=== PATIENT | male | born 1975 | race Two or more races ===

== ENCOUNTER 2024-04-27 09:11 | Inpatient (IN) | payer MEDICARE, MEDICAID ==
[~2024-04-27] VITALS: Ht 175.3 cm; Wt 111.9 kg
[2024-04-27] MEDS: SODIUM CHLORIDE 0.9% 1,000 ML IVB ONE (10:03)
[2024-04-27] MEDS: METOCLOPRAMIDE HCL 5MG/ml INJ 2ml VIAL IV ONE ×2 (10:03→17:54)
--- NOTE | 2024-04-27 10:29 | DVH ---
XY CHEST TWO VIEWS ROUTINE CLINICAL HISTORY: cp COMPARISON: None TECHNIQUE: Frontal and lateral view of the chest was obtained FINDINGS: Lines and Tubes: None. Midline sternotomy wires with prosthetic heart valve. Lungs: Right lower lung zone curvilinear opacities. Pleura: No effusion. No pneumothorax. Cardiomediastinal contours: Unremarkable Bones: No acute osseous abnormality. IMPRESSION: 1. Right basilar curvilinear opacities, likely atelectasis, with developing infiltrate not excluded. HS:Y
[2024-04-27 10:35] LABS: Basophils # (auto) 0 10 ^3/uL (0-0.2); Basophils % (auto) 0.5 % (0.0-2.0); Eosinophils # (auto) 0.1 10 ^3/uL (0-0.8); Hematocrit 43.4 % (41.0-53.0); Hemoglobin 15.3 g/dL (13.5-17.5); Lymphocytes # (auto) 1.4 10 ^3/uL (0.4-5.4); Mean Corpuscular Hemoglobin 30.6 pg (28.0-32.0); Mean Corpuscular Hgb Conc. 35.2 g/dL (32.0-36.0); Mean Corpuscular Volume 86.9 fL (80.0-100.0); Monocytes # (auto) 0.7 10 ^3/uL (0-1.3); Monocytes % (auto) 12.5 % (0.0-12.0); Neutrophils # (auto) 3.3 10 ^3/uL (1.6-8.6); Platelet Count (auto) 198 10^3/uL (140-450); Red Blood Cells 4.99 10^6/uL (4.5-5.90); Red Cell Distribution Width 13.7 % (11.8-14.3); White Blood Cell 5.5 10^3/uL (4.4-10.8)
[2024-04-27 10:50] LABS: Albumin 3.8 g/dL (3.2-4.8); Alkaline Phosphatase 70 U/L (46-116); Anion Gap 6 (5-15); BUN/Creatinine Ratio 19.1 (10.0-20.0); Blood Urea Nitrogen 21 mg/dL (9-23); Carbon Dioxide 23 mmol/L (20-31); Glucose 105 mg/dL (74-106); Magnesium 2.2 mg/dL (1.6-2.6); Potassium 3.9 mmol/L (3.5-5.1); Sodium 137 mmol/L (136-145); Total Protein 6.1 g/dL (5.7-8.2)
--- NOTE | 2024-04-27 10:50 | ED.PDOC ---
HPI Comments 48 year old male FARZANEH presents to the ED with chief complaint of chest pain. Patient reports that he has been experiencing chest pain with associated nausea, hiccups, forgetfulness, and SOB for a week now with diarrhea for the past 2 days. Patient relays that his chest pain radiates from his back to the front of his chest. Patient states he had a previous CVA with right sided deficits and is currently on Coumadin. Patient denies any cough, vomiting, fever, chills, headache, abdominal pain, or dizziness. Chief Complaint: Chest Pain Time Seen by MD: 10:45 Primary Care Provider: JEANNE Reviewed Notes: Nurses Notes, Batter Scaler Notes, Medications, Allergies Allergies: Coded Allergies: NO KNOWN ALLERGIES (Unverified , 04/27/24) Information Source: Patient, Emergency Med Personnel Mode of Arrival: EMS Severity: Moderate Timing: Weeks Duration: Since onset Prehospital treatment: None Location: Substernal Radiation: Back Quality: Sharp Onset: At Rest Cardiac Risk Factors: HTN PE Risk Factors: None History of: None Associated Signs and Symptoms: SOB Past Medical History PAST MEDICAL HISTORY: CVA, HTN Surgical History (Other): Aortic valve replacement Family History Family History: Reviewed,noncontributory to illness Social History Smoker: Non-Smoker Alcohol: Denies ETOH Use Drugs: Marijuana Lives In: Home Constitutional: reports: others ("hiccups"); denies: chills, diaphoresis, fatigue, fever, malaise, sweats, weakness EENTM: denies: blurred vision, double vision, ear bleeding, ear discharge, ear drainage, ear pain, ear ringing, eye pain, eye redness, hearing loss, mouth p ain, mouth swelling, nasal discharge, nose bleeding, nose congestion, nose pain, photophobia, tearing, throat pain, throat swelling, voice changes, others Respiratory: reports: shortness of breath; denies: cough, hemoptysis, orthopnea, SOB at rest, SOB with excertion, stridor, wheezing, others Cardiovascular: reports: chest pain; denies: dizzy spells, diaphoresis, Dyspnea on exertion, edema, irregular heart beat, left arm pain, lightheadedness, palpitations, PND, syncope, others Gastrointestinal: reports: diarrhea, nausea; denies: abdomen distended, abdominal pain, blood streaked bowels, constipated, dysphagia, difficulty swallowing, hematemesis, melena, poor appetite, poor fluid intake, rectal bleeding, rectal pain, vomiting, others Genitourinary: denies: burning, dysuria, flank pain, frequency, hematuria, incontinence, penile discharge, penile sore, pain, testicle pain, testicle swelling, urgency, others Neurological: denies: dizziness, fainting, headache, left sided numbness, left sided weakness, numbness, paresthesia, pre-existing deficit, right sided numbness, right sided weakness, seizure, speech problems, tingling, tremors, weakness, others Musculoskeletal: denies: back pain, gout, joint pain, joint swelling, muscle pain, muscle stiffness, neck pain, others Integumetry: denies: bruises, change in color, change in hair/nails, dryness, laceration, lesions, lumps, rash, wounds, others Allergic/Immunocompromised: denies: Difficulty Healing, Frequent Infections, Hives, Itching, others Hematologic/Lymphatic: denies: anemia, blood clots, easy bleeding, easy bruising, swollen glands, others Endocrine: denies: excessive hunger, excessive sweating, excessive thirst, excessive urination, flushing, intolerance to cold, intolerance to heat, unexplained weight gain, unexplained weight loss, others Psychiatric: denies: anxiety, bipolar disorder, depression, hopeless, panic disorder, schizophrenia, sleepless, suicidal, others All Other Systems: Reviewed and Negative Physical Exam General Appearance: Moderate Distress, Obese HEENT: Normal ENT Inspection, PERRL/EOMI, Other (Constant hiccups) Neck: Full Range of Motion, Non-Tender, Normal, Normal Inspection Respiratory: Chest Non-Tender, Lungs Clear, No Accessory Muscle Use, No Respiratory Distress, Normal Breath Sounds Cardiovascular: No Edema, No JVD, No Murmur, No Gallop, Normal Peripheral Pulses, Regular Rate/Rhythm Breast Exam: Deferred Gastrointestinal: No Organomegaly, Non Tender, No Pulsatile Mass, Normal Bowel Sounds, Soft Genitalia: Deferred Pelvic: Deferred Rectal: Deferred Extremities: Decreased range of motion, No pedal edema, Other (Right hemiparesis) Neurologic: Alert, Motor Weakness, Other (Right hemiparesis) Cerebellar Function: Normal Reflexes: Normal Skin: Dry, Normal Color, Warm Peripheral Pulses: 1+ carotid (R), 1+ carotid (L) Lymphatic: No Adenopathy EKG EKG : Pulse Rate (adult): 69 [place]: Normal Cardiac Rhythm: NSR Block: RBBB Was a procedure done? Was a procedure done?: No CP Differential Dx Differential Diagnosis: Hypoxia, MAT, PAC's Differential Diagnosis: Gastritis, Myocardial Infarction, Pericarditis X-Ray, Labs, Meds, VS Vital Signs Date Time Temp Pulse Resp B/P (MAP) Pulse Ox O2 Delivery O2 Flow Rate FiO2 04/27/24 18:21 79 04/27/24 17:45 70 17 110/66 (81) 98 04/27/24 15:20 70 04/27/24 12:07 63 04/27/24 12:00 98.7 62 15 97/62 (74) 97 98.7 04/27/24 11:15 69 04/27/24 11:00 59 18 96/61 (73) 94 04/27/24 10:24 68 04/27/24 09:49 Room Air* 0 21 04/27/24 09:44 68 17 114/69 (84) 97 04/27/24 09:15 69 04/27/24 09:15 99.0 78 20 123/78 (93) 97 Lab Test 04/27/24 11:45 04/27/24 10:20 Range/Units Urine Color Yellow Yellow Urine Clarity Clear Clear Urine pH 6.0 5.0-9.0 Urine Specific [place] 1.025 1.001-1.035 Urine Protein Negative Negative Urine Ketones Negative Negative Urine Blood Negative Negative /uL Urine Nitrite Negative Negative Urine Bilirubin Negative Negative Urine Urobilinogen 2 H Negative mg/dL Urine Leukocyte Esterase Negative Negative /uL Urine RBC <1 0 - 3 /hpf Urine WBC 1 0 - 3 /hpf Urine Squamous Epithelial Cells Few <5 /hpf Urine Bacteria None seen None Seen /hpf Urine Glucose Normal Normal mg/dL White Blood Count 5.5 4.4-10.8 10^3/uL Red Blood Count 4.99 4.5-5.90 10^6/uL Hemoglobin 15.3 13.5-17.5 g/dL Hematocrit 43.4 41.0-53.0 % Mean Corpuscular Volume 86.9 80.0-100.0 fL Mean Corpuscular Hemoglobin 30.6 28.0-32.0 pg Mean Corpuscular Hemoglobin Concent 35.2 32.0-36.0 g/dL Red Cell Distribution Width 13.7 11.8-14.3 % Platelet Count 198 140-450 10^3/uL Mean Platelet Volume 7.8 6.9-10.8 fL Neutrophils (%) (Auto) 60.0 37.0-80.0 % Lymphocytes (%) (Auto) 26.0 10.0-50.0 % Monocytes (%) (Auto) 12.5 H 0.0-12.0 % Eosinophils (%) (Auto) 1.0 0.0-7.0 % Basophils (%) (Auto) 0.5 0.0-2.0 % Neutrophils # (Auto) 3.3 1.6-8.6 10 ^3/uL Lymphocytes # (Auto) 1.4 0.4-5.4 10 ^3/uL Monocytes # (Auto) 0.7 0-1.3 10 ^3/uL Eosinophils # (Auto) 0.1 0-0.8 10 ^3/uL Basophils # (Auto) 0 0-0.2 10 ^3/uL Nucleated Red Blood Cells 0.0 % Prothrombin Time 18.9 H 9.3-11.8 sec Prothrombin Time INR 1.87 H 0.9-1.15 Activated Partial Thromboplast Time 36.7 H 24.5-34.5 SEC D-Dimer, Quantitative 0.86 H 0.0-0.49 mg/L FEU Sodium Level 137 136-145 mmol/L Potassium Level 3.9 3.5-5.1 mmol/L Chloride Level 108 H 98-107 mmol/L Carbon Dioxide Level 23 20-31 mmol/L Anion Gap 6 5-15 Blood Urea Nitrogen 21 9-23 mg/dL Creatinine 1.10 0.700-1.30 mg/dL Glomerular Filtration Rate Calc 82 >90 mL/min BUN/Creatinine Ratio 19.1 10.0-20.0 Serum Glucose 105 74-106 mg/dL Calcium Level 8.4 L 8.7-10.4 mg/dL Magnesium Level 2.2 1.6-2.6 mg/dL Total Bilirubin 1.0 0.2-1.0 mg/dL Aspartate Amino Transferase (AST) 52 H 13-40 U/L Alanine Aminotransferase (ALT) 52 H 7-40 U/L Alkaline Phosphatase 70 46-116 U/L Troponin I High Sensitivity 8 </=54 ng/L Total Protein 6.1 5.7-8.2 g/dL Albumin 3.8 3.2-4.8 g/dL Thyroid Stimulating Hormone (TSH) 0.73 0.55-4.78 uIU/mL Current Medications Medications (Trade) Dose Ordered Sig/Lane Route Start Time Stop Time Status Last Admin Sodium Chloride 1,000 ml @ 1,000 mls/hr Q1H ONCE IVB 04/27/24 10:00 04/27/24 10:59 DC 04/27/24 10:03 Metoclopramide HCl (Reglan Injection) 10 mg ONCE ONCE IV 04/27/24 10:00 04/27/24 10:01 DC 04/27/24 10:03 Ceftriaxone Sodium 50 ml @ 100 mls/hr ONCE ONCE IV 04/27/24 11:00 04/27/24 11:29 DC 04/27/24 11:12 Metoclopramide HCl (Reglan Injection) 10 mg ONCE ONCE IV 04/27/24 17:45 04/27/24 17:46 DC 04/27/24 17:54 Ceftriaxone Sodium 50 ml @ 100 mls/hr ONCE ONCE IV 04/27/24 18:30 04/27/24 18:59 DC 04/27/24 18:59 X-Ray, Labs, Meds, VS Comment Course in the emergency department eventful patient came in because of sudden onset this past week of nausea vomiting diarrhea this past two days had nonstop hiccups and also shortness of breath and chest pain substernal radiating to the back patient with a history of hypertension CVA with right hemiparesis in aortic valvular disease repair Chest x-ray shows right basilar infiltrate EKG shows normal sinus rhythm at 69 with right bundle-branch block CBC normal CMP negative Magnesium 2.2 INR 1.87 D-dimer elevated at 0.86 TSH 0.73 Urine negative Liver enzymes slightly elevated CT angiogram pending Dr. Ledezma to follow up Time of 1ST Reevaluation: 11:45 Reevaluation 1ST: Unchanged Time of 2ND Reevaluation: 15:20 Reevaluation 2ND: Improved Time of 3RD Reevaluation: 18:23 Reevaluation 3RD: Unchanged Patient Education/Counseling: Diagnosis, Treatment Family Education/Counseling: No Family Present Assigned to Dr. dr ledezma Change of Shift?: Yes Additional Information - The following tests were ordered, and results were reviewed by me: CXR, D- Dimer, PTPTT, Magnesium, CBC, CMP, UA, TSH - Additional information was gathered from interviewing the following independent Historian: EMT - I reviewed and agreed with the following test results read by other provider: CXR - I discussed treatments and results with medical personnel. Departure 1 Departure Time of Disposition: 20:03 (Patient presented with chest pain that was concerning for possible STEMI, ACS, PE, Pneumonia, Muscle Strain, COPD, Dissection. Data: 1. I ordered and reviewed the result of at least 3 labs including a CBC, BMP, and Troponin. 2. I independently interpreted the following tests: EKG which shows sinus arrhythmia and Chest X-ray which shows atelectasis. Risk:This patient has a high risk of morbidity due to further diagnostic testing or treatment and may suffer from an acute cardiac or respiratory disorder. Workup reveals concern for ACS and patient should be admitted for further workup and possible expert consultation. ) Impression: Primary Impression: Chest pain Qualified Codes: R07.2 - Precordial pain Additional Impressions: Shortness of breath Gastroenteritis Dehydration determined by examination Hemiparesis affecting right side as late effect of cerebrovascular accident Intractable hiccups Elevated d-dimer Aortic valve replaced Right lower lobe consolidation Disposition: ADMITTED INPATIENT Admit to: Med Surg Condition: Serious Critical Care Note Critical Care Time?: Yes (30 min-critical care time only) Critical care comment: Acute chest pain Authorized and Performed by: Anastasia Ledezma MD Total critical care time: Approximately 33 minutes Due to a high probability of clinically significant, life threatening deterioration, the patient required my highest level of preparedness to intervene emergently and I personally spent this critical care time directly and personally managing the patient. This critical care time included obtaining a history; examining the patient; pulse oximetry; ordering and review of studies; arranging urgent treatment with development of a management plan; evaluation of patient's response to treatment; frequent reassessment; and, discussions with other providers. This critical care time was performed to assess and manage the high probability of imminent, life-threatening deterioration that could result in multi-organ failure. It was exclusive of separately billable procedures and treating other patients and teaching time. Please see my other sections and the rest of the note for further information on patient assessment and treatment. Stability Stability form required: Yes Unstable for transfer: Telemetry monitoring (Telemetry monitoring required), Requires medication (Requires Med for stabilization) Heart Score Heart Score: Heart Score Response (Comments) Value History Moderate Suspicious 1 EKG Normal 0 Age 45-64 1 Risk Factors >3 or Hx ASHD 2 Troponin N/A 0 Total 4 I personally scribed for KATHRYN RICKS MD ([email or web address]) on 04/27/24 at 10:50. Electronically submitted by Adrián Alonso ([email or web address]). KATHRYN RICKS MD Apr 27, 2024 10:50 ANASTASIA LEDEZMA MD Apr 27, 2024 20:04
[2024-04-27 10:55] LABS: INR 1.87 (0.9-1.15); Partial Thromboplastin Time 36.7 SEC (24.5-34.5); Prothrombin Time 18.9 sec (9.3-11.8)
[2024-04-27 11:03] LABS: Alanine Aminotransferase 52 U/L (7-40); Aspartate Aminotransferase 52 U/L (13-40); Calcium 8.4 mg/dL (8.7-10.4); Chloride 108 mmol/L (98-107)
[2024-04-27] MEDS: cefTRIAXone 1GM/50ML D5W 50 ML IV ONE ×2 (11:12→18:59)
[2024-04-27 11:51] LABS: Urine Bacteria None Seen /hpf (None Seen)
[2024-04-27 12:13] LABS: Urine Blood Negative /uL (Negative); Urine Clarity Clear (Clear); Urine Color Yellow (Yellow); Urine Protein, UAD Negative (Negative); Urine Specific Gravity 1.025 (1.001-1.035); Urine Urobilinogen 2 mg/dL (Negative); Urine WBC 1 /hpf (0 - 3)
--- NOTE | 2024-04-27 19:09 | ECG ---
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
--- NOTE | 2024-04-27 19:22 | DVH ---
INDICATION: Pulmonary embolism COMPARISON: None TECHNIQUE: Multidetector CTA of the chest was performed of the chest with 100 cc of intravenous contr ast. PULMONARY ANGIOGRAPHY PROTOCOL was utilized using a bolus-tracking technique centered on the gordon n pulmonary artery. Axial, coronal and sagittal multiplanar and MIP reformats were performed. Radiation Dose Information: CT Dose: CTDI volume is 26.29 mGy. Dose-length product is 1027.64 mGy*cm Omnipaque 350: 100 mL The dose indicators for CT are the volume Computed Tomography (CT) Dose Index (CTDIvol) and the Dose Length Product (DLP), and are measured in units of mGy and mGy-cm, respectively. These indicators are not patient dose, but values generated from the CT scanner acquisition factors. The report includes radiation exposure data for exposures received during this examination. Findings: Pulmonary artery: Normal caliber of the pulmonary artery. Poo opacification of the pulmonary artery preventing accurate evaluation for pulmonary emboli. ( necessary opacification to exclude pulmonary e mboli is 266 Hounsfield units: Tissue density achieved 165). No large central or saddle embolus visu alized. Lower neck: Normal thyroid. Lungs: No focal consolidation, pulmonary mass, or suspicious pulmonary nodule. Heart/Vascular Structures: Normal heart size. Normal caliber and enhancement of the aorta. Aortic travon ve prosthesis in place. Lymph Nodes: No adenopathy Pleura: No pleural effusion or significant pneumothorax. Musculoskeletal: No acute osseous abnormality. Sternal wire sutures in place Upper abdomen: Gallbladder has been surgically removed. IMPRESSION: 1. No pulmonary embolism. 2. No acute intrathoracic abnormality.
--- NOTE | 2024-04-27 20:54 | DVHHPRES ---
History of Present Illness Resident Creating Document: JORGE A ANDINO RESIDENT History of Present Illness This is a 48-year-old male with with past medical history of hypertension, CVA with right-sided weakness, status post aortic valve surgery presented to the ED with a chief complaint of chest pain and cough since Saturday prior to this admission. Patient states that chest pain started Saturday which was sharp stabbing pain and fluctuated between 2 out of 10 to 8/10 and radiate to the upper abdomen and associated with shortness of breath, dizziness and diaphoresis. The patient also complains of low-grade fever, sore throat and cough with whitish sputum for the same duration and hiccough up for 1 week The patient denies headache, flu-like symptoms, abdominal pain, dysuria, sick contact, recent traveling or any change in bowel and bladder habit. Past Medical History Hypertension, CVA with right-sided weakness Past Surgical History Cholecystectomy, aortic valve surgery Family History None Past Social History Lives with family Smoke weeds, nonalcoholic and never tried any other drugs Review of Systems Constitutional: Yes: Fever; No: Chills, Sweats, Weakness, Malaise, Other Eyes: No: Pain, Vision change, Conjunctivae inflammation, Eyelid inflammation, Other, Redness ENT: No: Ear pain, Ear discharge, Nose pain, Nose discharge, Nose congestion, Mouth pain, Mouth swelling, Throat pain, Throat swelling, Other Respiratory: Cough, Shortness of breath, Sputum; No: Dry, SOB with excertion, Wheezing, Hemoptysis, Pleuritic Pain, Wheezing, Other Cardiovascular: Chest Pain, Lt Headedness; No: Palpitations, Orthopnea, Paroxysmal Noc. Dyspnea, Edema, Other Gastrointestinal: No: Nausea, Vomiting, Abdominal Pain, Diarrhea, Constipation, Melena, Hematochezia, Other Genitourinary: No Dysuria, No Frequency, No Incontinence, No Hematuria, No Retention, No Other Musculoskeletal: No: other, neck pain, shoulder pain, arm pain, back pain, hand pain, leg pain, foot pain Skin: No: Rash, Lesions, Jaundice, Bruising, Other Neurological: No: Weakness, Numbness, Incoordination, Change in speech, Confusion, Seizures, Other Allergies: Coded Allergies: NO KNOWN ALLERGIES (Unverified , 04/27/24) Exam Vital Signs Vital Signs Date Time Temp Pulse Resp B/P (MAP) Pulse Ox O2 Delivery O2 Flow Rate FiO2 04/27/24 19:37 123 04/27/24 19:20 Room Air* 0 21 04/27/24 17:45 17 110/66 (81) 98 04/27/24 12:00 98.7 98.7 Exam Physical examination: General Appearance: Alert, Oriented X3, Cooperative, No acute distress HEENT: Atraumatic, PERRLA, EOMI, Mucous membrane moist/pink Respiratory: Clear to auscultation, Normal air movement Cardiovascular: Regular rate, Normal S1, Normal S2, No murmurs, no chest wall tenderness Abdominal: Normal bowel sounds, Soft, No tenderness, No hepatospenomegaly, No masses Extremities: No clubbing, No cyanosis, No edema, Normal pulses, No tenderness/swelling Skin: No rashes, No breakdown, No significant lesion Neuro: Normal gait, Normal speech, Strength at 5/5 X4 ext, Normal tone, Sensation intact, grossly intact cranial nerves Psych/Mental Status: Mental status NL, Mood NL Labs/Xrays Labs Test 04/27/24 11:45 04/27/24 10:20 Range/Units Urine Color Yellow Yellow Urine Clarity Clear Clear Urine pH 6.0 5.0-9.0 Urine Specific [place] 1.025 1.001-1.035 Urine Protein Negative Negative Urine Ketones Negative Negative Urine Blood Negative Negative /uL Urine Nitrite Negative Negative Urine Bilirubin Negative Negative Urine Urobilinogen 2 H Negative mg/dL Urine Leukocyte Esterase Negative Negative /uL Urine RBC <1 0 - 3 /hpf Urine WBC 1 0 - 3 /hpf Urine Squamous Epithelial Cells Few <5 /hpf Urine Bacteria None seen None Seen /hpf Urine Glucose Normal Normal mg/dL White Blood Count 5.5 4.4-10.8 10^3/uL Red Blood Count 4.99 4.5-5.90 10^6/uL Hemoglobin 15.3 13.5-17.5 g/dL Hematocrit 43.4 41.0-53.0 % Mean Corpuscular Volume 86.9 80.0-100.0 fL Mean Corpuscular Hemoglobin 30.6 28.0-32.0 pg Mean Corpuscular Hemoglobin Concent 35.2 32.0-36.0 g/dL Red Cell Distribution Width 13.7 11.8-14.3 % Platelet Count 198 140-450 10^3/uL Mean Platelet Volume 7.8 6.9-10.8 fL Neutrophils (%) (Auto) 60.0 37.0-80.0 % Lymphocytes (%) (Auto) 26.0 10.0-50.0 % Monocytes (%) (Auto) 12.5 H 0.0-12.0 % Eosinophils (%) (Auto) 1.0 0.0-7.0 % Basophils (%) (Auto) 0.5 0.0-2.0 % Neutrophils # (Auto) 3.3 1.6-8.6 10 ^3/uL Lymphocytes # (Auto) 1.4 0.4-5.4 10 ^3/uL Monocytes # (Auto) 0.7 0-1.3 10 ^3/uL Eosinophils # (Auto) 0.1 0-0.8 10 ^3/uL Basophils # (Auto) 0 0-0.2 10 ^3/uL Nucleated Red Blood Cells 0.0 % Prothrombin Time 18.9 H 9.3-11.8 sec Prothrombin Time INR 1.87 H 0.9-1.15 Activated Partial Thromboplast Time 36.7 H 24.5-34.5 SEC D-Dimer, Quantitative 0.86 H 0.0-0.49 mg/L FEU Sodium Level 137 136-145 mmol/L Potassium Level 3.9 3.5-5.1 mmol/L Chloride Level 108 H 98-107 mmol/L Carbon Dioxide Level 23 20-31 mmol/L Anion Gap 6 5-15 Blood Urea Nitrogen 21 9-23 mg/dL Creatinine 1.10 0.700-1.30 mg/dL Glomerular Filtration Rate Calc 82 >90 mL/min BUN/Creatinine Ratio 19.1 10.0-20.0 Serum Glucose 105 74-106 mg/dL Calcium Level 8.4 L 8.7-10.4 mg/dL Magnesium Level 2.2 1.6-2.6 mg/dL Total Bilirubin 1.0 0.2-1.0 mg/dL Aspartate Amino Transferase (AST) 52 H 13-40 U/L Alanine Aminotransferase (ALT) 52 H 7-40 U/L Alkaline Phosphatase 70 46-116 U/L Troponin I High Sensitivity 8 </=54 ng/L Total Protein 6.1 5.7-8.2 g/dL Albumin 3.8 3.2-4.8 g/dL Thyroid Stimulating Hormone (TSH) 0.73 0.55-4.78 uIU/mL Assessment/Plan Assessment/Plan Assessment and plan: # Chest pain rule out ACS - EKG and troponins were unremarkable - Aspirin 325 mg p.o. once - Chest x-ray revealed normal study - Ordered echo - Consulted Cardiology # Ruled out pulmonary embolism - Patient is on room air - D-dimer is elevated - CT angio ruled out possibility of pulmonary embolism # Rule out pancreatitis - Lipase is elevated. - Ordered lipid panel and h/o of cholecystectomy. - IV normal saline at 125 mL/hour # Transaminitis without hyperbilirubinemia - Monitor CMP # History of CVA with right-sided weakness - Aspirin 81 mg p.o. daily and atorvastatin 40 mg p.o. at HS # S/P mechanical aortic valve - Continue warfarin 3 mg p.o. daily # PUD prophylaxis - Protonix 40 mg p.o. daily # DVT prophylaxis - Patient is on warfarin Code status discussed with the patient for more than 20 minutes full code Plan discussed with Dr. Kline Plan discussed with: Patient, Other My Orders Orders - JORGE A ANDINO RESIDENT Procedure Category Date Status Time Admit ADMIT 04/27/24 Verified 20:50 Morphine Sulfate PHA 04/27/24 Verified Injection 21:00 Stat Ekg For Chest TAVIA 04/27/24 Verified Pain 20:50 Notify Of Changes TAVIA 04/27/24 Verified From Base 20:50 Morning Show Producer For TAVIA 04/27/24 Verified 24 Hours 20:50 Nitroglycerin PHA 04/27/24 Verified Sublingual (Ntrostat 21:00 Lipase LAB 04/27/24 Verified 20:50 Drug Screen LAB 04/27/24 Verified 20:50 Covid19 Antigen [facility] LAB 04/27/24 Verified Rapid Influenza A&B LAB 04/27/24 Verified 20:50 Echo 2d Mode Cardiac US 04/27/24 Verified DOP 20:50 Date of Service: Apr 27, 2024 Billing Provider: TANNA KLINE MD Common Visit Codes: [id number] INP/OBS CARE (HIGH) JORGE A ANDINO RESIDENT Apr 27, 2024 20:53 TANNA KLINE MD Apr 28, 2024 17:23
[2024-04-27] MEDS ORDERED: MORPHINE SULFATE INJ 2 MG/ml SYRG IV PRN (21:00)
[2024-04-27] MEDS ORDERED: NITROGLYCERIN 0.4 MG SL TAB SL PRN (21:00)
[2024-04-27 21:45] VITALS: PULSE 115; PULSE 63; O2SAT 94; O2SAT 99
[2024-04-27] MEDS: ASPirin-EC 81 mg tab PO SCH (22:57)
[2024-04-27] MEDS: ASPirin-EC 325mg tab PO ONE (22:57)
[2024-04-27] MEDS: ATORVASTATIN 20 MG TAB PO SCH (22:57)
[2024-04-27] MEDS: MELATONIN 5 MG TAB PO ONE (23:40)
[2024-04-28 01:32] LABS: COVID19 ANTIGEN SOFIA FIA NEGATIVE (NEGATIVE); Rapid Influenza A Negative (Negative); Rapid Influenza B Negative (Negative)
[2024-04-28 02:39] LABS: Amphetamine Screen, Urine Neg (NEGATIVE); Barbiturate Scree,Urine Neg (NEGATIVE); Benzodiazephine Screen, Urine Neg (NEGATIVE); Cannabinoid Screen, Urine Pos (NEGATIVE); Cocaine Screen, Urine Neg (NEGATIVE); Opiate Scree,Urine Neg (NEGATIVE); Phencyclidine Screen, Urine Neg (NEGATIVE)
[2024-04-28 04:37] LABS: Basophils # (auto) 0 10 ^3/uL (0-0.2); Basophils % (auto) 0.2 % (0.0-2.0); Eosinophils # (auto) 0.1 10 ^3/uL (0-0.8); Eosinophils % (auto) 1.7 % (0.0-7.0); Hematocrit 40.9 % (41.0-53.0); Hemoglobin 14.3 g/dL (13.5-17.5); Lymphocytes # (auto) 1.6 10 ^3/uL (0.4-5.4); Lymphocytes % (auto) 35.1 % (10.0-50.0); Mean Corpuscular Hemoglobin 30.6 pg (28.0-32.0); Mean Corpuscular Hgb Conc. 34.9 g/dL (32.0-36.0); Mean Corpuscular Volume 87.5 fL (80.0-100.0); Monocytes # (auto) 0.6 10 ^3/uL (0-1.3); Monocytes % (auto) 13.9 % (0.0-12.0); Neutrophils # (auto) 2.2 10 ^3/uL (1.6-8.6); Neutrophils % (auto) 49.1 % (37.0-80.0); Nucleated Red Blood Cells % 0.1 %; Platelet Count (auto) 175 10^3/uL (140-450); Red Blood Cells 4.68 10^6/uL (4.5-5.90); Red Cell Distribution Width 13.3 % (11.8-14.3); White Blood Cell 4.5 10^3/uL (4.4-10.8)
[2024-04-28 04:57] LABS: INR 1.71 (0.9-1.15); Prothrombin Time 17.4 sec (9.3-11.8)
[2024-04-28] MEDS: SODIUM CHLORIDE 0.9% 1,000 ML IV SCH (05:59)
[2024-04-28 06:19] LABS: Cholesterol 86 mg/dL (< 200); LDL Cholesterol 43 mg/dL (< 100); Triglycerides 102 mg/dL (< 150)
[2024-04-28 06:25] LABS: HDL Cholesterol 27 mg/dL (40-59)
--- NOTE | 2024-04-28 07:59 | ECG ---
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
[2024-04-28 08:00] VITALS: PULSE 67; RESP 21; O2SAT 95
[2024-04-28] MEDS: PANTOPRAZOLE 40 MG TAB PO SCH (10:00)
[2024-04-28 11:03] VITALS: BP 108/58; PULSE 70; RESP 17; TEMP 98.7; O2SAT 97
[2024-04-28] MEDS: cefTRIAXone 1GM/50ML D5W 50 ML IV ONE (11:09)
[2024-04-28] MEDS: AZITHROMYCIN 500MG/ 250ML 250 ML IV ONE (12:04)
--- NOTE | 2024-04-28 13:12 | DVHSR ---
APPROVED REPORT EXAM: Two-dimensional and M-mode echocardiogram with Doppler and color Doppler. Blood Pressure: 113/77 mmHg INDICATION Chest Pain Surgery/Intervention Valve Replacement: Mechanical Type: Aortic Valve RISK FACTORS Height: 69, Weight: 224 DIMENSIONS LVDd5.2 (3.8-5.7cm)LA (2D)5.0 (1.9-4.0cm)Aortic Root (2.0-3.7cm) LVDs3.5 (2.5-4.0cm)LA (MM) (1.9-4.0cm)Aortic Cusp Exc (1.5-2.0cm) EF (%) 60.0 (55-70%)Rt. Atrium4.3 (1.9-4.0cm)Asc. Aorta cm IVSd1.2 (0.7-1.1cm)RV (D) (1.8-2.4cm) PWd1.3 (0.7-1.1cm) Mitral Valve MitralMitral Stenosis E wave0.86m/sMV Mean GR.mmHg E/A ratio0.02D MVAcm2 DECEL TimemsPRESS 1/2 [id number] IVRTmsDop MVA1.74cm2 Aortic Valve Aortic ValveAortic Stenosis V10.78m/Josh Mean GR.14mmHg V22.45m/Josh Peak GR.24mmHg LVOT Diameter2.3 (1.8-2.4cm)Doppler AVA1.32cm2 Pulmonic Valve V21.14m/s Tricuspid Valve TR Velocity1.91m/s [id number] Conclusion Normal left ventricular size and dimension. Normal left ventricular systolic function estimated ejec tion fraction 55%. There is mild anteroseptal wall hypokinesia in keeping with the old open heart lira rgery. There is a grade 1 diastolic dysfunction. Mildly dilated right ventricle. Mildly dilated right atrium. Mildly reduced left ventricular systol ic function. Normal left atrial size and dimension. The aortic valve is likely a mechanical bileaflet valve prosthesis, with a normal gradient peak of 20 and mean of14 mm of mercury no significant stenosis or regurgitation was noted. No paravalvular shaggy k. The mitral valve appears mildly thickened no significant mitral valve regurgitation noted. There is mild tricuspid valve regurgitation. There is mild pulmonary valve regurgitation. No significant pericardial effusion.
--- NOTE | 2024-04-28 14:08 | ECG ---
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
[2024-04-28] MEDS ORDERED: WARFARIN SODIUM 5 MG TAB PO SCH (17:00)
[2024-04-28 17:33] VITALS: BP 118/77; PULSE 63; RESP 20; TEMP 97.9; O2SAT 95
--- NOTE | 2024-04-28 17:50 | DVHPNRES ---
Progress Note Date Seen: Apr 28, 2024 Resident Creating Document: ALICIA CLARKE RESIDENT Has the PT tested + for MRSA If YES, has PT been informed?: No Medical Necessity Reason Pt with a Central, PICC or Fol: No Subjective Review of Systems 48-year-old male patient with past medical history of hypertension, drug abuse marijuana use, CVA with right-sided weakness, [place] status post CABG, status post aortic valve surgery after an endocarditis 10 years ago who presented to the emergency department with a chief confluence chest pain located in the left side of the chest described as sharp like pain that range between 2/10 until 7 out of 10 intensity associated with coughing and fever. Patient denies headache, flu- like symptoms, abdominal pain, dysuria, sick contacts, recent traveling or any change in bowel or bladder habits. Patient was started on empiric antibiotics to manage community acquired pneumonia , cardiology evaluation is still pending. patient was examined at bedside , he reports mild chest pain in the left side , less severe compare than yesterday, and moderate coughing episodes with whitish phlegm. He denies any other symptoms. Review of systems same as mentioned in the HPI. Objective vital signs Vital Sign Date Time Temp Pulse Resp B/P (MAP) Pulse Ox O2 Delivery O2 Flow Rate FiO2 04/28/24 17:33 97.9 63 20 118/77 (91) 95 97.9 04/28/24 09:05 Room Air* 0 N/A Nasal Cannula* Total Intake and Output 04/27/24 04/27/24 04/28/24 15:00 23:00 07:00 Intake Total 50 ml Output Total 500 ml Balance -500 ml 50 ml medications Current Medications Medications Dose Ordered Sig/Lane Route Start Time Stop Time Status Last Admin Dose Admin Morphine Sulfate 2 mg Q30M PRN IV 04/27/24 21:00 Nitroglycerin 0.4 mg Q5MINP PRN SL 04/27/24 21:00 Warfarin Sodium 3 mg COUMADIN PO 04/28/24 17:00 UNV Pantoprazole Sodium 40 mg DAILY PO 04/28/24 10:00 04/28/24 10:00 40 MG Aspirin 81 mg DAILY PO 04/28/24 10:00 04/27/24 22:57 81 MG Atorvastatin Calcium 40 mg HS PO 04/27/24 22:00 04/27/24 22:57 40 MG Sodium Chloride 1,000 ml @ 125 mls/hr Q8H IV 04/28/24 05:30 04/28/24 13:52 125 MLS/HR Warfarin Sodium RX PROTOCOL PER PHARMACY PO 04/28/24 10:00 Ceftriaxone Sodium 50 ml @ 100 mls/hr DAILY@09 IV 04/29/24 09:00 Azithromycin 500 mg DAILY PO 04/29/24 10:00 Cancel Azithromycin 250 ml @ 125 mls/hr DAILY IV 04/29/24 10:00 Examination General Appearance: Alert, Oriented X3, Cooperative, No acute distress HEENT: Atraumatic, PERRLA, EOMI, Mucous membrane moist/pink Respiratory: Clear to auscultation, Normal air movement Cardiovascular: Regular rate, Normal S1, Normal S2, No murmurs, no chest wall tenderness Abdominal: Normal bowel sounds, Soft, No tenderness, No hepatospenomegaly, No masses Extremities: No clubbing, No cyanosis, No edema, Normal pulses, No tenderness/swelling Skin: No rashes, No breakdown, No significant lesion Neuro: Normal gait, Normal speech, Strength at 5/5 X4 ext, Normal tone, Sensation intact, grossly intact cranial nerves Psych/Mental Status: Mental status NL, Mood NL laboratory and microbiology Laboratory Tests 04/28/24 04:13 04/27/24 10:20 Test 04/27/24 10:20 Range/Units Serum Glucose 105 74-106 mg/dL Microbiology Date/Time Source Procedure Growth Status 04/27/24 12:00 Blood Blood Culture - Preliminary NO GROWTH AFTER 24 HOURS OF INCUBATION. Resulted Problem List/Assessment/Plan Problem List/Assessment/Plan # Chest pain rule out ACS - Aspirin 81 mg daily - Atorvastatin 40 gm PO - Chest x-ray revealed normal study - Echo showed: ejection fraction 55%, mild anteroseptal wall hypokinesia . - Consulted Cardiology, pending #Right basilar infiltrate on CXR likely CAP - Ceftriaxone IV - Azithromycin IV # Ruled out pulmonary embolism - Patient is on room air - D-dimer is elevated - CT angio ruled out possibility of pulmonary embolism # Rule out pancreatitis - Lipase is elevated. - Ordered lipid panel and h/o of cholecystectomy. - IV normal saline at 125 mL/hour # Transaminitis without hyperbilirubinemia - Monitor CMP # History of CVA with right-sided weakness - Aspirin 81 mg p.o. daily and atorvastatin 40 mg p.o. at HS # S/P mechanical aortic valve - Continue warfarin 3 mg p.o. daily #type 2 obesity BMI 34.3 - Lifestyle modification and healthy dietary habits counseling # drug abuse, marijuana use - Drug abuse cessation counseling case discussed with goals of care discussed with the patient for 33 minutes code status: full code Plan discussed with: Patient My Orders My Orders Orders - ALICIA CLARKE Procedure Category Date Status Time Cardiac DIET 04/28/24 Transmitted Diet-2gna,Lofat,Lochol Breakfast Ceftriaxone 1gm/50ml PHA 04/29/24 In Process D5w (Rocephin) 09:00 Azithromycin 500mg/ PHA 04/29/24 In Process 250ml (Zithromax 50 10:00 Date of Service: Apr 28, 2024 Billing Provider: JEAN BOUDREAUX MD Common Visit Codes: [id number] INP/OBS CARE(HIGH) Secondary Visit Codes: [id number] CARE PLAN 30 MINUTES ALICIA CLARKE RESIDENT Apr 28, 2024 17:50 JEAN BOUDREAUX MD Apr 29, 2024 10:52
[2024-04-28] MEDS: WARFARIN SODIUM 1 MG TAB PO ONE (19:02)
[2024-04-28 20:00] VITALS: PULSE 86
[2024-04-28 21:00] VITALS: BP 138/79; PULSE 66; RESP 17; TEMP 98.3; O2SAT 98
--- NOTE | 2024-04-29 00:18 | DVHINCON2 ---
Date of service: Apr 28, 2024 Referring Physician Juliane Reason for Consultation Chest pain History of Present Illness This is a 48 year old ,[place] with a PMH of CVA with right sided deficits and HTN who presented to the ED by EMS with complaints of chest pain. Patient reports that he has been experiencing chest pain with associated nausea, hiccups, forgetfulness, and SOB for a week now with diarrhea for the past 2 days. Patient relays that his chest pain radiates from his back to the front of his chest. EKG is NSR at 69. Chest x-ray shows right basilar infiltrate. CBC and CMP are unremarkable. Magnesium 2.2, INR 1.87, D-dimer elevated at 0.86, TSH 0.73. Liver enzymes slightly elevated. CTA chest is negative for PE. Troponin is negative. Patient was admitted to the hospital. I am asked to consult on this patient. Family History: FH: alcoholism G8 FATHER Allergies: Coded Allergies: NO KNOWN ALLERGIES (Unverified , 04/27/24) Current Medications Current Medications Medications (Trade) Dose Ordered Sig/Lane Route PRN Reason Start Time Stop Time Status Last Admin Warfarin Sodium (Coumadin) 3 mg COUMADIN PO 04/28/24 17:00 UNV Pantoprazole Sodium (Protonix Tablet) 40 mg DAILY PO 04/28/24 10:00 04/28/24 10:00 Aspirin (Ecotrin Enteric Coated Tablet) 81 mg DAILY PO 04/28/24 10:00 04/27/24 22:57 Sodium Chloride 1,000 ml @ 125 mls/hr Q8H IV 04/28/24 05:30 04/28/24 18:30 Warfarin Sodium (Coumadin Per Rx Protocol) RX PROTOCOL PER PHARMACY PO 04/28/24 10:00 Ceftriaxone Sodium 50 ml @ 100 mls/hr DAILY@09 IV 04/29/24 09:00 Azithromycin 250 ml @ 125 mls/hr DAILY IV 04/29/24 10:00 04/28/24 10:49 DC Azithromycin (Zithromax Tablet) 500 mg DAILY PO 04/29/24 10:00 Cancel Azithromycin 250 ml @ 125 mls/hr DAILY IV 04/29/24 10:00 Review of Systems Constitutional: reports: others ("hiccups"); denies: chills, diaphoresis, fatigue, fever, malaise, sweats, weakness EENTM: denies: blurred vision, double vision, ear bleeding, ear discharge, ear drainage, ear pain, ear ringing, eye pain, eye redness, hearing loss, mouth pain, mouth swelling, nasal discharge, nose bleeding, nose congestion, nose pain, photophobia, tearing, throat pain, throat swelling, voice changes, others Respiratory: reports: shortness of breath; denies: cough, hemoptysis, orthopnea, SOB at rest, SOB with excertion, stridor, wheezing, others Cardiovascular: reports: chest pain; denies: dizzy spells, diaphoresis, Dyspnea on exertion, edema, irregular heart beat, left arm pain, lightheadedness, palpitations, PND, syncope, others Gastrointestinal: reports: diarrhea, nausea; denies: abdomen distended, abdominal pain, blood streaked bowels, constipated, dysphagia, difficulty swallowing, hematemesis, melena, poor appetite, poor fluid intake, rectal bleeding, rectal pain, vomiting, others Genitourinary: denies: burning, dysuria, flank pain, frequency, hematuria, incontinence, penile discharge, penile sore, pain, testicle pain, testicle swelling, urgency, others Neurological: denies: dizziness, fainting, headache, left sided numbness, left sided weakness, numbness, paresthesia, pre-existing deficit, right sided numbness, right sided weakness, seizure, speech problems, tingling, tremors, weakness, others Musculoskeletal: denies: back pain, gout, joint pain, joint swelling, muscle pain, muscle stiffness, neck pain, others Integumetry: denies: bruises, change in color, change in hair/nails, dryness, laceration, lesions, lumps, rash, wounds, others Allergic/Immunocompromised: denies: Difficulty Healing, Frequent Infections, Hives, Itching, others Hematologic/Lymphatic: denies: anemia, blood clots, easy bleeding, easy bruising, swollen glands, others Endocrine: denies: excessive hunger, excessive sweating, excessive thirst, excessive urination, flushing, intolerance to cold, intolerance to heat, unexplained weight gain, unexplained weight loss, others Psychiatric: denies: anxiety, bipolar disorder, depression, hopeless, panic disorder, schizophrenia, sleepless, suicidal, others All Other Systems: Reviewed and Negative Vital Signs Vital Signs Date Time Temp Pulse Resp B/P (MAP) Pulse Ox O2 Delivery O2 Flow Rate FiO2 04/28/24 21:00 98.3 66 17 138/79 (98) 98 98.3 04/28/24 11:03 Room Air* 0 21 Physical Exam GENERAL: Awake, alert, oriented. Obese. LUNGS: Clear. CARDIOVASCULAR: Heart sounds are good. ABDOMEN: Soft. Labs/Diagnostic Data Labs Test 04/28/24 04:13 04/28/24 01:53 04/28/24 00:53 04/27/24 21:11 Range/Units White Blood Count 4.5 4.4-10.8 10^3/uL Red Blood Count 4.68 4.5-5.90 10^6/uL Hemoglobin 14.3 13.5-17.5 g/dL Hematocrit 40.9 L 41.0-53.0 % Mean Corpuscular Volume 87.5 80.0-100.0 fL Mean Corpuscular Hemoglobin 30.6 28.0-32.0 pg Mean Corpuscular Hemoglobin Concent 34.9 32.0-36.0 g/dL Red Cell Distribution Width 13.3 11.8-14.3 % Platelet Count 175 140-450 10^3/uL Mean Platelet Volume 8.0 6.9-10.8 fL Neutrophils (%) (Auto) 49.1 37.0-80.0 % Lymphocytes (%) (Auto) 35.1 10.0-50.0 % Monocytes (%) (Auto) 13.9 H 0.0-12.0 % Eosinophils (%) (Auto) 1.7 0.0-7.0 % Basophils (%) (Auto) 0.2 0.0-2.0 % Neutrophils # (Auto) 2.2 1.6-8.6 10 ^3/uL Lymphocytes # (Auto) 1.6 0.4-5.4 10 ^3/uL Monocytes # (Auto) 0.6 0-1.3 10 ^3/uL Eosinophils # (Auto) 0.1 0-0.8 10 ^3/uL Basophils # (Auto) 0 0-0.2 10 ^3/uL Nucleated Red Blood Cells 0.1 % Prothrombin Time 17.4 H 9.3-11.8 sec Prothrombin Time INR 1.71 H 0.9-1.15 Triglycerides Level 102 < 150 mg/dL Cholesterol Level 86 < 200 mg/dL LDL Cholesterol 43 < 100 mg/dL HDL Cholesterol 27 L 40-59 mg/dL Urine Opiates Screen Neg NEGATIVE Urine Fentanyl Screen Neg NEGATIVE Urine Barbiturates Screen Neg NEGATIVE Urine Phencyclidine Screen Neg NEGATIVE Urine Amphetamines Screen Neg NEGATIVE Urine Benzodiazepines Screen Neg NEGATIVE Urine Cocaine Screen Neg NEGATIVE Urine Cannabinoids Screen Pos NEGATIVE Influenza Type A Antigen Negative Negative Influenza Type B Antigen Negative Negative SARS-CoV-2 Antigen (Rapid) Negative NEGATIVE Lipase 67 H 12-53 U/L Plasma/Serum Blood Alcohol < 3.0 <10 mg/dL Test 04/27/24 11:45 04/27/24 10:20 Range/Units Urine Color Yellow Yellow Urine Clarity Clear Clear Urine pH 6.0 5.0-9.0 Urine Specific [place] 1.025 1.001-1.035 Urine Protein Negative Negative Urine Ketones Negative Negative Urine Blood Negative Negative /uL Urine Nitrite Negative Negative Urine Bilirubin Negative Negative Urine Urobilinogen 2 H Negative mg/dL Urine Leukocyte Esterase Negative Negative /uL Urine RBC <1 0 - 3 /hpf Urine WBC 1 0 - 3 /hpf Urine Squamous Epithelial Cells Few <5 /hpf Urine Bacteria None seen None Seen /hpf Urine Glucose Normal Normal mg/dL Activated Partial Thromboplast Time 36.7 H 24.5-34.5 SEC D-Dimer, Quantitative 0.86 H 0.0-0.49 mg/L FEU Sodium Level 137 136-145 mmol/L Potassium Level 3.9 3.5-5.1 mmol/L Chloride Level 108 H 98-107 mmol/L Carbon Dioxide Level 23 20-31 mmol/L Anion Gap 6 5-15 Blood Urea Nitrogen 21 9-23 mg/dL Creatinine 1.10 0.700-1.30 mg/dL Glomerular Filtration Rate Calc 82 >90 mL/min BUN/Creatinine Ratio 19.1 10.0-20.0 Serum Glucose 105 74-106 mg/dL Calcium Level 8.4 L 8.7-10.4 mg/dL Magnesium Level 2.2 1.6-2.6 mg/dL Total Bilirubin 1.0 0.2-1.0 mg/dL Aspartate Amino Transferase (AST) 52 H 13-40 U/L Alanine Aminotransferase (ALT) 52 H 7-40 U/L Alkaline Phosphatase 70 46-116 U/L Troponin I High Sensitivity 8 </=54 ng/L Total Protein 6.1 5.7-8.2 g/dL Albumin 3.8 3.2-4.8 g/dL Thyroid Stimulating Hormone (TSH) 0.73 0.55-4.78 uIU/mL Microbiology Date/Time Source Procedure Growth Status 04/27/24 12:00 Blood Blood Culture - Preliminary NO GROWTH AFTER 24 HOURS OF INCUBATION. Resulted Assessment Chest pain. Right basilar infiltrate. Transaminitis without hyperbilirubinemia. History of CVA with right-sided weakness. S/P mechanical aortic valve. Type 2 obesity. Drug abuse, marijuana use. Plan/Recommendation I agree with your ongoing assessment and care of plan. Echocardiogram. Aspirin, Lipitor. IV antibiotics as ordered. Morphine for pain management. GI prophylactics. Additional plan as per the hospital course. A total of 45 minutes was spent reviewing the patient record, examining the patient, making a diagnostic and therapeutic plan, discussing this plan with medical personnel, following up on diagnostic studies and following the patient for clinical stability excluding any and all procedures. At least 50% of this time was spent in direct, [id number] contact. Plan discussed with: Patient KARINA BANDA MD Apr 29, 2024 00:18
[2024-04-29 01:00] VITALS: BP 112/53; PULSE 60; RESP 18; TEMP 97.5; O2SAT 94
[2024-04-29 05:00] VITALS: BP 119/69; PULSE 58; RESP 17; TEMP 98; O2SAT 96
[2024-04-29 05:53] LABS: Basophils # (auto) 0 10 ^3/uL (0-0.2); Basophils % (auto) 0.5 % (0.0-2.0); Eosinophils # (auto) 0.2 10 ^3/uL (0-0.8); Eosinophils % (auto) 4.2 % (0.0-7.0); Hemoglobin 14.7 g/dL (13.5-17.5); Lymphocytes # (auto) 1.7 10 ^3/uL (0.4-5.4); Lymphocytes % (auto) 37.6 % (10.0-50.0); Mean Corpuscular Hemoglobin 30.4 pg (28.0-32.0); Mean Corpuscular Hgb Conc. 34.9 g/dL (32.0-36.0); Monocytes # (auto) 0.6 10 ^3/uL (0-1.3); Monocytes % (auto) 12.7 % (0.0-12.0); Neutrophils # (auto) 2.1 10 ^3/uL (1.6-8.6); Nucleated Red Blood Cells % 0.3 %; Platelet Count (auto) 186 10^3/uL (140-450); Red Blood Cells 4.83 10^6/uL (4.5-5.90); Red Cell Distribution Width 13.5 % (11.8-14.3); White Blood Cell 4.6 10^3/uL (4.4-10.8)
[2024-04-29 06:09] LABS: Potassium 4.1 mmol/L (3.5-5.1); Sodium 140 mmol/L (136-145)
[2024-04-29 06:10] LABS: Anion Gap 8 (5-15); Calcium 8.8 mg/dL (8.7-10.4); Carbon Dioxide 24 mmol/L (20-31)
[2024-04-29 06:13] LABS: INR 1.53 (0.9-1.15); Partial Thromboplastin Time 31.8 SEC (24.5-34.5); Prothrombin Time 15.7 sec (9.3-11.8)
[2024-04-29 06:15] LABS: Blood Urea Nitrogen 10 mg/dL (9-23); Glucose 96 mg/dL (74-106)
[2024-04-29 07:02] LABS: Chloride 108 mmol/L (98-107)
[2024-04-29 08:00] VITALS: PULSE 54
[2024-04-29 08:35] VITALS: BP 124/75; PULSE 60; RESP 14; TEMP 98.5; O2SAT 98
[2024-04-29] MEDS: AZITHROMYCIN 500MG/ 250ML 250 ML IV SCH (09:56)
[2024-04-29] MEDS: cefTRIAXone 1GM/50ML D5W 50 ML IV SCH (09:57)
[2024-04-29] MEDS ORDERED: AZITHROMYCIN 500MG/ 250ML 250 ML IV SCH (10:00)
[2024-04-29] MEDS ORDERED: AZITHROMYCIN 250 MG TAB PO SCH (10:00)
[2024-04-29 13:12] VITALS: BP 135/87; PULSE 68; RESP 18; TEMP 97.5; O2SAT 96
[2024-04-29] MEDS ORDERED: ASPI-543 PO (13:18)
[2024-04-29] MEDS ORDERED: ATOR20TA50 PO (13:18)
[2024-04-29] MEDS ORDERED: AUG875T PO (13:19)
[2024-04-29] MEDS ORDERED: WARF-112 PO (13:23)
--- NOTE | 2024-04-29 13:38 | DVHPN2 ---
Progress Note - Dictate Date Seen: Apr 29, 2024 Has the PT tested + for MRSA If YES, has PT been informed?: No Medical Necessity Reason Pt with a Central, PICC or Fol: No Subjective Patient was seen and evaluated in follow up. Patient is complaining of chest discomfort. Echocardiogram showed normal left ventricular size and dimension. Normal left ventricular systolic function estimated ejection fraction 55%. here is mild anteroseptal wall hypokinesia in keeping with the old open heart surgery. There is a grade 1 diastolic dysfunction. vital signs Vital Sign Date Time Temp Pulse Resp B/P (MAP) Pulse Ox O2 Delivery O2 Flow Rate FiO2 04/29/24 13:12 97.5 68 18 135/87 (103) 96 97.5 04/29/24 08:10 Room Air* 0 21 Total Intake and Output 04/28/24 04/28/24 04/29/24 15:00 23:00 07:00 Intake Total 175 ml 600 ml 950 ml Output Total 800 ml Balance 175 ml 600 ml 150 ml medications Current Medications Medications Dose Ordered Sig/Lane Route Start Time Stop Time Status Last Admin Dose Admin Morphine Sulfate 2 mg Q30M PRN IV 04/27/24 21:00 Nitroglycerin 0.4 mg Q5MINP PRN SL 04/27/24 21:00 Warfarin Sodium 3 mg COUMADIN PO 04/28/24 17:00 UNV Pantoprazole Sodium 40 mg DAILY PO 04/28/24 10:00 04/29/24 09:58 40 MG Aspirin 81 mg DAILY PO 04/28/24 10:00 04/29/24 09:58 81 MG Atorvastatin Calcium 40 mg HS PO 04/27/24 22:00 04/28/24 21:51 40 MG Sodium Chloride 1,000 ml @ 125 mls/hr Q8H IV 04/28/24 05:30 04/29/24 05:43 125 MLS/HR Warfarin Sodium RX PROTOCOL PER PHARMACY PO 04/28/24 10:00 Ceftriaxone Sodium 50 ml @ 100 mls/hr DAILY@09 IV 04/29/24 09:00 04/29/24 09:57 100 MLS/HR Azithromycin 500 mg DAILY PO 04/29/24 10:00 Cancel Azithromycin 250 ml @ 125 mls/hr DAILY IV 04/29/24 10:00 04/29/24 09:56 125 MLS/HR objective GENERAL: Awake, alert, oriented. Obese. LUNGS: Clear. CARDIOVASCULAR: Heart sounds are good. ABDOMEN: Soft. laboratory and microbiology Laboratory Tests 04/29/24 05:27 Test 04/29/24 05:27 Range/Units Serum Glucose 96 74-106 mg/dL Problem List Chest pain. Right basilar infiltrate. Transaminitis without hyperbilirubinemia. History of CVA with right-sided weakness. S/P mechanical aortic valve. Type 2 obesity. Drug abuse, marijuana use. Assessment/Plan Continued all current supportive medical care. Aspirin, Lipitor. IV antibiotics as ordered. Morphine for pain management. GI prophylactics. Additional plan as per the hospital course. Plan discussed with: Patient KARINA BANDA MD Apr 29, 2024 13:19
[2024-04-29 14:17] VITALS: TEMP 36.4
[2024-04-29] MEDS ORDERED: WARFARIN SODIUM 5 MG TAB PO ONE (17:00)
--- NOTE | 2024-04-29 21:38 | DVHDSRES ---
Discharge Summary Date of Admission Resident Creating Document: ALICIA CLARKE RESIDENT Apr 27, 2024 at 20:50 Date of Discharge: Apr 29, 2024 Admitting Diagnosis chest pain rule out acs Labs/Diagnostic Data: Laboratory Results Test 04/29/24 05:27 04/28/24 04:13 04/28/24 01:53 04/28/24 00:53 White Blood Count 4.6 10^3/uL (4.4-10.8) Red Blood Count 4.83 10^6/uL (4.5-5.90) Hemoglobin 14.7 g/dL (13.5-17.5) Hematocrit 42.0 % (41.0-53.0) Mean Corpuscular Volume 87.0 fL (80.0-100.0) Mean Corpuscular Hemoglobin 30.4 pg (28.0-32.0) Mean Corpuscular Hemoglobin Concent 34.9 g/dL (32.0-36.0) Red Cell Distribution Width 13.5 % (11.8-14.3) Platelet Count 186 10^3/uL (140-450) Mean Platelet Volume 8.0 fL (6.9-10.8) Neutrophils (%) (Auto) 45.0 % (37.0-80.0) Lymphocytes (%) (Auto) 37.6 % (10.0-50.0) Monocytes (%) (Auto) 12.7 % (0.0-12.0) Eosinophils (%) (Auto) 4.2 % (0.0-7.0) Basophils (%) (Auto) 0.5 % (0.0-2.0) Neutrophils # (Auto) 2.1 10 ^3/uL (1.6-8.6) Lymphocytes # (Auto) 1.7 10 ^3/uL (0.4-5.4) Monocytes # (Auto) 0.6 10 ^3/uL (0-1.3) Eosinophils # (Auto) 0.2 10 ^3/uL (0-0.8) Basophils # (Auto) 0 10 ^3/uL (0-0.2) Nucleated Red Blood Cells 0.3 % Prothrombin Time 15.7 sec (9.3-11.8) Prothrombin Time INR 1.53 (0.9-1.15) Activated Partial Thromboplast Time 31.8 SEC (24.5-34.5) Sodium Level 140 mmol/L (136-145) Potassium Level 4.1 mmol/L (3.5-5.1) Chloride Level 108 mmol/L (98-107) Carbon Dioxide Level 24 mmol/L (20-31) Anion Gap 8 (5-15) Blood Urea Nitrogen 10 mg/dL (9-23) Creatinine 0.91 mg/dL (0.700-1.30) Glomerular Filtration Rate Calc 103 mL/min (>90) BUN/Creatinine Ratio 11.0 (10.0-20.0) Serum Glucose 96 mg/dL (74-106) Calcium Level 8.8 mg/dL (8.7-10.4) Triglycerides Level 102 mg/dL (< 150) Cholesterol Level 86 mg/dL (< 200) LDL Cholesterol 43 mg/dL (< 100) HDL Cholesterol 27 mg/dL (40-59) Urine Opiates Screen Neg (NEGATIVE) Urine Fentanyl Screen Neg (NEGATIVE) Urine Barbiturates Screen Neg (NEGATIVE) Urine Phencyclidine Screen Neg (NEGATIVE) Urine Amphetamines Screen Neg (NEGATIVE) Urine Benzodiazepines Screen Neg (NEGATIVE) Urine Cocaine Screen Neg (NEGATIVE) Urine Cannabinoids Screen Pos (NEGATIVE) Influenza Type A Antigen Negative (Negative) Influenza Type B Antigen Negative (Negative) SARS-CoV-2 Antigen (Rapid) Negative (NEGATIVE) Test 04/27/24 21:11 04/27/24 11:45 04/27/24 10:20 Lipase 67 U/L (12-53) Plasma/Serum Blood Alcohol < 3.0 mg/dL (<10) Urine Color Yellow (Yellow) Urine Clarity Clear (Clear) Urine pH 6.0 (5.0-9.0) Urine Specific [place] 1.025 (1.001-1.035) Urine Protein Negative (Negative) Urine Ketones Negative (Negative) Urine Blood Negative /uL (Negative) Urine Nitrite Negative (Negative) Urine Bilirubin Negative (Negative) Urine Urobilinogen 2 mg/dL (Negative) Urine Leukocyte Esterase Negative /uL (Negative) Urine RBC <1 /hpf (0 - 3) Urine WBC 1 /hpf (0 - 3) Urine Squamous Epithelial Cells Few /hpf (<5) Urine Bacteria None seen /hpf (None Seen) Urine Glucose Normal mg/dL (Normal) D-Dimer, Quantitative 0.86 mg/L FEU (0.0-0.49) Magnesium Level 2.2 mg/dL (1.6-2.6) Total Bilirubin 1.0 mg/dL (0.2-1.0) Aspartate Amino Transferase (AST) 52 U/L (13-40) Alanine Aminotransferase (ALT) 52 U/L (7-40) Alkaline Phosphatase 70 U/L (46-116) Troponin I High Sensitivity 8 ng/L (</=54) Total Protein 6.1 g/dL (5.7-8.2) Albumin 3.8 g/dL (3.2-4.8) Thyroid Stimulating Hormone (TSH) 0.73 uIU/mL (0.55-4.78) Other Laboratory Tests 04/29/24 05:27 Brief Hx & Hospital Course: HPI: The patient, a 48-year-old male with a history of hypertension, cerebrovascular accident (CVA) with right-sided deficits, status post coronary artery bypass graft (CABG), and aortic valve surgery following endocarditis 10 years ago, presented to the emergency department with complaints of sharp, left-sided chest pain radiating to the back. The pain, ranging in intensity from 2/10 to 7/10, was associated with coughing, whitish phlegm, and subjective fever. The patient also reported fatigue and dyspnea but denied nausea, vomiting, changes in bowel or bladder habits, or new neurological symptoms. He has a history of drug abuse (marijuana and cocaine, with ongoing marijuana use) and obesity, which are contributing risk factors. Hospital course: On arrival, the patient was hemodynamically stable. Initial workup included an EKG, which showed normal sinus rhythm at 69 bpm without ischemic changes, and troponins, which were negative, ruling out acute coronary syndrome. A D-dimer was mildly elevated at 0.86, prompting a CTA chest, which was negative for pulmonary embolism but revealed a right basilar infiltrate consistent with pneumonia. A chest X-ray confirmed this finding. Laboratory results showed mildly elevated liver enzymes (AST 42, ALT 14.7) and a slightly elevated white blood cell count, consistent with infection. CMP and CBC were otherwise unremarkable. Blood cultures were drawn and are pending at discharge. The patient was started on empiric antibiotics with IV ceftriaxone to address the pneumonia . He also received supplemental oxygen via nasal cannula initially, but this was discontinued as his oxygen saturation stabilized on room air. Throughout his hospital stay, the patient showed clinical improvement, with significant resolution of chest pain and no recurrence of fever or hemodynamic instability. He tolerated oral intake and reported feeling subjectively better. At the time of discharge, the patient was stable and afebrile, with no chest pain, dyspnea, or other acute symptoms. He was instructed to continue warfarin per protocol, aspirin 81 mg daily, atorvastatin 40 mg daily, and complete a 7- day course of oral antibiotics, transitioning from ceftriaxone to amoxicillin- clavulanate or azithromycin as prescribed. He was also discharged with pantoprazole 40 mg daily for gastrointestinal protection. The patient was counseled on the importance of smoking cessation and reducing marijuana use. He was advised to return to the emergency department if he experienced worsening chest pain, fever, or difficulty breathing. Disposition: discharge to home case discussed with Goals of care discussed with the patient for 34 minutes Operations or Procedures [place] [id number] Ph: [phone] DIAGNOSTIC IMAGING Diagnostic Imaging Report : [id number] Signed PATIENT: RICHELLE COOKACCT: [id number] UNIT: [id number] : 1975 LOC: ER ROOM / BED: / AGE / SEX: 48 / M ADM STATUS: REG ER SERVICE [id number] ORDERING PHYSICIAN: KATHRYN RICKS MD PROCEDURE(s): CXR2 - CHEST TWO VIEWS ROUTINE REASON: cp ORDER NUMBER(s): [id number], ACCESSION NUMBER(s): [id number] CHEST TWO VIEWS ROUTINE CLINICAL HISTORY: cp COMPARISON: None TECHNIQUE: Frontal and lateral view of the chest was obtained FINDINGS: Lines and Tubes: None. Midline sternotomy wires with prosthetic heart valve. Lungs: Right lower lung zone curvilinear opacities. Pleura: No effusion. No pneumothorax. Cardiomediastinal contours: Unremarkable Bones: No acute osseous abnormality. IMPRESSION: 1. Right basilar curvilinear opacities, likely atelectasis, with developing infiltrate not excluded. HS:Y ATED BY: LINDA SIMMONS DO DICTATED DATE/TIME: 04/27/24 1026 SIGNED BY: LINDA SIMMONS DO SIGNED DATE/TIME: 04/27/24 1026 CC: [place] [address] Ph: [phone] DIAGNOSTIC IMAGING Diagnostic Imaging Report : [id number] Signed PATIENT: HANNAH COOK: [id number] UNIT: [id number] : 1975 LOC: ER ROOM / BED: / AGE / SEX: 48 / M ADM STATUS: REG ER SERVICE [id number] ORDERING PHYSICIAN: KATHRYN RICKS MD PROCEDURE(s): CTACH - CT ANGIO CHEST CONTRAST REASON: Pulmonary embolism ORDER NUMBER(s): [id number], ACCESSION NUMBER(s): [id number] INDICATION: Pulmonary embolism COMPARISON: None TECHNIQUE: Multidetector CTA of the chest was performed of the chest with 100 cc of intravenous contrast. PULMONARY ANGIOGRAPHY PROTOCOL was utilized using a bolus-tracking technique centered on the main pulmonary artery. Axial, coronal and sagittal multiplanar and MIP reformats were performed. Radiation Dose Information: CT Dose: CTDI volume is 26.29 mGy. Dose-length product is 1027.64 mGy*cm Omnipaque 350: 100 mL The dose indicators for CT are the volume Computed Tomography (CT) Dose Index (CTDIvol) and the Dose Length Product (DLP), and are measured in units of mGy and mGy-cm, respectively. These indicators are not patient dose, but values generated from the CT scanner acquisition factors. The report includes radiation exposure data for exposures received during this examination. Findings: Pulmonary artery: Normal caliber of the pulmonary artery. Poo opacification of the pulmonary artery preventing accurate evaluation for pulmonary emboli. ( necessary opacification to exclude pulmonary emboli is 266 Hounsfield units: Tissue density achieved 165). No large central or saddle embolus visualized. Lower neck: Normal thyroid. Lungs: No focal consolidation, pulmonary mass, or suspicious pulmonary nodule. Heart/Vascular Structures: Normal heart size. Normal caliber and enhancement of the aorta. Aortic valve prosthesis in place. Lymph Nodes: No adenopathy Pleura: No pleural effusion or significant pneumothorax. Musculoskeletal: No acute osseous abnormality. Sternal wire sutures in place Upper abdomen: Gallbladder has been surgically removed. IMPRESSION: 1. No pulmonary embolism. 2. No acute intrathoracic abnormality. ATED BY: AMAURY KELLY Jr., DO DICTATED DATE/TIME: 04/27/241918 SIGNED BY: AMAURY KELLY Jr., SIGNED DATE/TIME: 04/27/241918 CC: Condition at Discharge: Fair Final Diagnosis/Problems List # Chest pain ruled out ACS #Right basilar infiltrate on CXR likely CAP # Ruled out pulmonary embolism # Ruled out pancreatitis # Transaminitis without hyperbilirubinemia # History of CVA with right-sided weakness # S/P mechanical aortic valve #type 2 obesity BMI 34.3 # drug abuse, marijuana use Discharge Disposition: Home SNF Discharge Will this Physician continue t: No Discharge Instruct/Medications Diet: Cardiac 2g Na,low cholest Activity: No Restrictions, As Tolerated Follow Up/Referral: follow up with cardiology within 2 weeks follow up with pcp within 2 weeks Medications: script to pharmacy Discharge Statement: "Patient was advised to return to the ER or call 911 if any headaches, dizziness, shortness of breath, chest pain, abdominal pain, bleeding, fevers, or worsening of medical condition. Patient was counseled about treatment plan, medications, possible side effects, patientverbalized understanding. All questions were answered to the best of my ability. This discharge took greater then 30 minutes in planning, reviewing documentation, counseling the patient, and discussing with other team members." ASSESSMENT ASSESSMENT Assessment chest pain likely pleuiritic acs ruled out sepsis due to Community aquired pneumonia Date of Service: Apr 29, 2024 Billing Provider: TANNA FERNANDES MD Common Visit Codes: [id number]-[id number]/OBS DISCH DAY >30min ALICIA CLARKE RESIDENT Apr 29, 2024 21:38 TANNA FERNANDES MD Apr 30, 2024 11:47
== END 2024-04-29 14:50 | disposition home or self-care (01) | DRG 871 ==
LOC: EDBD 09:11 → ER 09:11 → TELE 20:50 → TELE-WESTW 04-28 17:10
PROVIDERS: ADMIT Internal Medicine Geriatric Medicine; ATTEND Emergency Medicine
DX: A41.9 Sepsis, unspecified organism (principal); J18.9 Pneumonia, unspecified organism; I69.351 Hemiplegia and hemiparesis following cerebral infarction affecting right dominant side; E86.0 Dehydration; I10 Essential (primary) hypertension; Z20.822 Contact with and (suspected) exposure to COVID-19; K52.9 Noninfective gastroenteritis and colitis, unspecified; R74.01 Elevation of levels of liver transaminase levels; E66.9 Obesity, unspecified; F12.10 Cannabis abuse, uncomplicated; Z95.2 Presence of prosthetic heart valve; Z68.34 Body mass index [BMI] 34.0-34.9, adult
CPT/HCPCS: 36415; 71046; 71275; 80048; 80053; 80061; 80307; 80320; 81001; 83690; 83735; 84443; 84484; 85025; 85379; 85610; 85730; 87040; 87426; 87804; 93005; 93306; G0378